=== PATIENT | female | born 1950 | race Caucasian/White ===

== ENCOUNTER 2024-07-01 06:47 | Observation (INO) ==
--- OUTSIDE RECORDS SUMMARY | 2024-07-01 06:51 | External Medical Summary | Summary of Care ---
Author Name Unknown Organization [facility] Address [address] [place] [address] Phone [phone] Care Team Providers Care Jewel Oliving Machine Operator Name Role Phone Garfieldchristiano Zuri Berumen DO Primary Care Provider Encounter Details Date Type Department Care Team (Late st Contact Info) Description 02/20/2024 Orders Only Outcomes Research Department [address] [place], [place] [id number] [place] Hernandez CHRA MyCode Research Other*[id number] Allergies No known active allergiesdocumented as of this encounter (statuses as of 02/20/2024) Medications Medication Sig Dispensed Refills Start Date End Date Status Calcium-Vitamin D 600-125 MG-UNIT TABS Take by mouth. Active Lumigan 0.01 % Ophthalmic Solution 03/24/2020 Activ e Fluticasone Propionate 50 MCG/ACT Nasal Suspension (Flonase)Indication s:URI with cough and congestion Administer 2 Sprays into each nostril as needed for Rhinitis. 12/02/2023 Active Atorvastatin Calcium 10 MG Oral Tablet (Lipitor) Take 1 Tablet by mouth in the morning. 90 Tablet 3 12/02/2023 Active Simethicone 80 MG Oral Tablet Chewable Take 1 Tablet by mouth every 6 hours as needed for Gas. Active Align Prebiotic-Probiotic 5-1.25 MG-GM Oral Tablet Chewable Take by mouth. Activ e documented as of this encounter (statuses as of 02/20/2024) Active Problems Problem Noted Date Diagnosed Date History of cataract 01/01/2022 Hx of nonmelanoma skin cancer 12/23/2020 Overview: BCC R forehead 06/2020, BCC R posterior auricular neck/scalp 11/2017,BCCL NLF 2010, Hx AK Primary open angle glaucoma 04/11/2016 Hx of actinic keratosis 11/12/2015 Hyperlipidemia documented as of this encounter (statuses as of 02/20/2024) Immunizations Name Administration Dates Next Due COVID-19 mRNA, LNP-s, No Pre serve, 2-Dose Series (Pfizer) 01/01/2022,04/03/2021,09/07/2020,2020 HEP A - Hepatitis A (Adult > 18 yrs) 05/10/2013, 11/07/2012 Pneumococcal Conjugate Vacc, 13 Valent (Prevnar) 03/23/2017,03/25/2016 Pneumococcal Conjugate Vacci ne, 20-valent ([id number]) 12/13/2022 Seasonal Influenza, Quadriva lent Hd (Fluzone Hd) 04/21/2022 Seasonal Influenza, Quadriva lent Hd, 65+ Yrs 03/04/2020 Seasonal Influenza, Quadriva lent, No Preserve, IM 03/25/2016 Seasonal Influenza, Split, I IV3, With Preserve, Inj 04/17/2015 Seasonal Influenza, Trivalen t, High Dose, No Preserve, IM 04/03/2021,02/27/2019 TDAP (age 10 and older)(Boostrix) 12/14/2022 TDAP, Age 7 and older, IM (Adacel) 08/04/2012 Typhoid VICPs Parenteral, 2 years and above (Typhim ) 11/07/2012 Zoster Vaccine Recombinant (Shingrix) 08/31/2019 ,04/22/2019 documented as of this encounter Social History Tobacco Use Types Packs/Day Years Used Date Smoking Tobacco: Never Smokeless Tobacco: Never Alcohol Use Standard Drinks/Week Comments Yes 0 (1 standard drink = 0.6 oz pur e alcohol) occ PHQ-2 Answer Date Recorded PHQ Adult Total Score 0 02/26/2022 Hunger Vital Sign Answer Date Recorded Within the past 12 months, y ou worried that your food would run out before you got the money to buy more. Never true 12/01/19 24 Within the past 12 months, t he food you bought just didn't last and you didn't have money to get more. Never true 12/01/2023 Childcare Answer Date Recorded Do you feel overwhelmed with taking care of a child, family member or friend? No 12/01/2023 Does your family need help f inding childcare? (Household - for ages 0-17 years) Not on file 12/01/2023 Clothing Answer Date Recorded Have you been unable to get clothing when it was really needed? No 12/01/2023 Is your family able to get c lothes or diapers when needed? (Household - for ages 0-17 years) Not on file 12/01/2023 Personal Safety Answer Date Recorded Do you feel unsafe or have concerns for your saf ety? No 12/01/2023 Do you have concerns for you r family's safety? (Household - for ages 0-17 years) Not on file 12/01/2023 Utilities Answer Date Recorded Do you have trouble paying y our heating, water, or electric bill? No 12/01/2023 Is your family able to pay t he heat, water, or electric bill? (Household - for ages 0-17 years) Not on file 12/01/2023 Does your family have access to good internet? (Household - for ages 0-17 years) Not on file 12/01/2023 Employment Status Answer Date Recorded Are you unemployed or without regular income? No 12/01/2023 Does the household have a [facility] source [facility] income? (Household - for ages 0-17 years) Not on file 12/01/2023 Social Connections Answer Date Recorded How often do you feel lonely or isolated from th ose around you? Never 12/01/2023 Financial Resource Strain Answer Date R ecorded Do you have any trouble payi ng for your medications, or do you think you might in the future? No 12/01/2023 Does your family have troubl e paying for medicine? (Household - for ages 0-17 years) Not on file 12/01/2023 Transportation Needs Answer Date Record ed READ ONLY Do you have troubl e getting a ride to medical visits or work? Never True 12/01/2023 Does your family have a hard time getting a ride to doctors visits? (Household - for ages 0-17 years) Not on file 12/01/2023 Has lack of transportation k ept you from medical appointments, meetings, work, or from getting things needed for daily living? Check all that apply. (Adult - for ages 18 years and over) Not on file 12/01/2023 Do you (or your family) have trouble finding or paying for a ride (transportation)? (Household - for ages 0-17 years) Not on file 12/01/2023 Housing Stability Answer Date Recorded Do you currently live in a s helter or have no steady place to sleep at night? No 12/01/2023 READ ONLY Do you think you a re at risk of becoming homeless? No 12/01/2023 Does your family worry about paying for your home or becoming homeless? (Household - for ages 0-17 years) Not on file 0 12/01/2023 Are you homeless or worried that you might be in the future? (Adult - for ages 18 years and over) Not on file Are you (or your family) sky eless or worried that you might be in the future? (Household - for ages 0-17 years) Not on file Food Insecurity Answer Date Recorded Do you need food for this week? No 12/01/2023 Are you able to get enough f ood for your family? (Household - for ages 0-17 years) Not on file 12/01/2023 Does your family need food t his week? (Household - for ages 0-17 years) Not on file 12/01/2023 Do you always have enough fo od for your family? (Household - for ages 0-17 years) Not on file 12/01/2023 Sex and Gender Information Value Date Recorded Sex Assigned at Female 06/13/2023 3:45 PM EST Gender Identity Female 06/13/2023 3:45 PM EST Sexual Orientation Straight 06/13/2023 3: 45 PM EST Job Start Date Occupation Industry Not on file Not on file Not on file documented as of this encounter Plan of Treatment Upcoming Encounters Date Type Department Care Team (Late st Contact Info) Description 02/27/2024 2:30 PM EDT Imaging Radiology, [facility] [address] [place] [address] 05/11/2024 2:00 PM EST Office Visit Dermatology [facility] [address] [place] [address] Frederick Lopez MD [address] [place] [address] 12/03/2024 1:00 PM EDT Office Visit Family Practice [facility] [address] [place] [address] Zuri Gillette DO [address] [facility] [place] [address] Scheduled Orders Name Type Priority Associated Diagnoses Orde r Schedule MYCODE SUBSEQUENT ADULT Lab Routine MyCode Research Other*[id number] Every 6 Months for 2 Occurrences starting 02/20/2024 until 03/11/2025 Scheduled Procedures Name Priority Associated Diagnoses Date/Ti me COLONOSCOPY FLEXIBLE PROXIMAL DIAGNOSTIC Recall History of colon polyps Health Maintenance Due Date Last Done Comments Cologuard 1996 Fecal Occult Blood Test 1996 Sigmoidoscopy 1996 Adult Wellness Visit 2017 Depression Screening 02/26/2023 02/26/2022 COVID-19 Vaccine ( season) 2023 01/01/2022, 04/03/2021, 09/07/2020, Additional history exists DXA Scan 05/04/2023 05/04/2016 Influenza Vaccine (FLU shot) (#1) 2024 03/25/2023, 04/21/2022, 04/03/2021, Additional history exists Mammogram 10/26/2024 10/27/2023, 10/03, 10/25/2022, Additional history exists Colonoscopy 03/17/2026 03/17/2021, 03/04, 01/31/2019, Additional history exists Colorectal Cancer Screening 03/17/2026 Lipid Panel 12/07/2028 12/08/2023, 11/2022, 04/09/2022, Additional history exists DTaP,Tdap,and Td Vaccines (3 - Td or Tdap) 12/14/2032 12/14/2022, 08/04/2012 Zoster Vaccines Completed 08/31/2019, 04/22/2019 RETIRED - COLONOSCOPY-EVERY 5 YRS AGES 18-100 Discontinued 03/17/2021, 03/17/2021, 01/31/2019, Additional history exists Pneumococcal Vaccine: 65+ Years Completed 12/13/2022, 03/23/2017, 03/25/2016 HPV (Gardasil) Vaccine Aged Out No lo nger eligible based on patient's age to complete this topic Hepatitis B Vaccine Aged Out No longe r eligible based on patient's age to complete this topic MENINGOCOCCAL (MENACTRA/MENVEO) Aged Out No longer eligible based on patient's age to complete this topic documented as of this encounter Medical Devices Not on filedocumented as of this encounter Visit Diagnoses Diagnosis MyCode Research Other*[id number] documented in this encounter Care Teams Jewel Oliving Machine Operator Relationship Specialty Start Date End Date Zuri Gillette DO [address] [place] [address] PCP - General Family Medicine 09/01/15 documented as of this encounter
--- OUTSIDE RECORDS SUMMARY | 2024-07-01 06:51 | External Medical Summary | Summary of Care ---
Author Name Unknown Organization [facility] Address [address] [facility] [address] Phone [phone] Care Team Providers Care Incident Handler Name Role Phone Zuri Gillette DO Primary Care Provider Reason for Visit * Reason Comments Follow Up Encounter Details Date Type Department Care Team (Late st Contact Info) Description 04/12/2024 2:00 PM EDT Office Visit Family Practice [facility] [address] [facility] [place] [address] Zuri Gillette DO [address] [facility] [place] [address] Age-related osteoporosis without current pathological fracture*; Screening for thyroid disorder Allergies Active Allergy Reactions Criticality Noted Date Comments Morphine Nausea/vomiting Low 04/12/2024 documented as of this encounter (statuses as of 04/26/2024) Medications Medication Sig Dispensed Refills Start Date End Date Status Calcium-Vitamin D 600-125 MG-UNIT TABS Take by mouth. Active Lumigan 0.01 % Ophthalmic Solution 03/24/2020 Active Atorvastatin Calcium 10 MG Oral Tablet (Lipitor) Take 1 Tablet by mouth in the morning. 90 Tablet 3 12/02/2023 Active Simethicone 80 MG Oral Tablet Chewable Take 1 Tablet by mouth every 6 hours as needed for Gas. Active Align Prebiotic-Probioti c 5-1.25 MG-GM Oral Tablet Chewable Take by mouth. Active Fiber 625 MG Oral Tablet Take 625 mg by mouth in the morning. Active Alendronate Sodium 70 MG Oral Tablet (Fosamax)Indicatio ns:Age-related osteoporosis without current pathological fracture Take 1 Tablet by mouth once a week. with 8 oz. water 30 minutes before first meal of the day. Remain upright for 30 min after taking tablet 5 Tablet 11 04/12/2024 Active Fluticasone Propionate 50 MCG/ACT Nasal Suspension (Flonase)Indicatio ns:URI with cough and congestion Administer 2 Sprays into each nostril as needed for Rhinitis. 12/02/2023 4 Discontinue d(Medicatio n List Clean Up) documented as of this encounter (statuses as of 04/26/2024) Active Problems Problem Noted Date Diagnosed Date History of cataract 01/01/2022 Hx of nonmelanoma skin cancer 12/23/2020 Overview: BCC R forehead 06/2020, BCC R posterior auricular neck/scalp 11/2017,BCCL NLF 2010, Hx [place] Primary open angle glaucoma 04/11/2016 Hx of actinic keratosis 11/12/2015 Hyperlipidemia documented as of this encounter (statuses as of 04/26/2024) Immunizations Name Administration Dates Next Due COVID-19 mRNA, LNP-s, No Pre serve, 2-Dose Series (Transbiomed) 01/01/2022,04/03/2021,09/07/2020,2020 COVID-19, MRNA-LNP, 23-24, P F, 30 MCG/0.3 mL, 12 YRS AND ABOVE, IM ([facility]) 03/08/2024 HEP A - Hepatitis A (Adult > 18 yrs) 05/10/2013, 11/07/2012 Pneumococcal Conjugate Vacc, 13 Valent (Prevnar) 03/23/2017,03/25/2016 Pneumococcal Conjugate Vacci ne, 20-valent ([id number]) 12/13/2022 Season Influenza, Quad, PF, Adjuvanted, 65+ Yrs, IM (FLUAD) 03/08/2024 Seasonal Influenza Vac., MDV , IM, 0.5 mL (Fluzone) 04/17/2015 Seasonal Influenza, High Dos e, Trivalent, PF, IM (Fluzone HD) 04/03/2021,02/27/2019 Seasonal Influenza, Quadriva lent Hd (Fluzone Hd) 04/21/2022 Seasonal Influenza, Quadriva lent Hd, 65+ Yrs 03/04/2020 Seasonal Influenza, Quadriva lent, No Preserve, IM 03/25/2016 TDAP (age 10 and older)(Boostrix) 12/14/2022 TDAP, [...] No 12/01/2023 Does the household have a re gular source of income? (Household - for ages [...] file Not on file Not on file Travel History Travel Start Travel End [facility] 03/26/2024 04/06/2024 documented as of this encounter Last Filed Vital Signs Vital Sign Reading Time Taken Comments Blood Pressure 118/60 04/12/2024 1:59 PM EDT Pulse 66 04/12/2024 1:59 PM EDT Temperature 37.2 C (98.9 F) 04/12/2024 1:59 PM ED T Respiratory Rate - - Oxygen Saturation 98% 04/12/2024 1:59 PM EDT Inhaled Oxygen Concentration - - Weight 60.6 kg (133 lb 8 oz) 04/12/2024 1:59 PM EDT Height 167.6 cm (5' 5.98") 04/12/2024 1:59 PM ED T Body Mass Index 21.56 04/12/2024 1:59 PM EDT documented in this encounter Progress Notes * Zuri Gillette, - 04/12/2024 2:06 PM EDT Images from the original note were not included. Subjective: Jazmine Vincent is a 74 year old female. Chief Complaint Patient presents with Follow Up HPI: Patient presents today for follow up on recent dexa scan and recommendations. Dexa was completed on02/27/24 with a high fracture risk. Fosamax or other medication treatment is advised. Patient is notentirely agreeable and reluctant to start fosamax due to possible side affects, but is willing to discuss options. PHM: Patient Active Problem List Diagnosis Hx of actinic keratosis Primary open angle glaucoma Hx of nonmelanoma skin cancer Hyperlipidemia History of cataract Current Outpatient Medications Medication Sig Dispense Refill Alendronate Sodium 70 MG Oral Tablet (Fosamax) Take 1 Tablet by mouth once a week. with 8 oz. water30 minutes before first meal of the day. Remain upright for 30 min after taking tablet 5 Tablet 11 Align Prebiotic-Probiotic 5-1.25 MG-GM Oral Tablet Chewable Take by mouth. Simethicone 80 MG Oral Tablet Chewable Take 1 Tablet by mouth every 6 hours as needed for Gas. Atorvastatin Calcium 10 MG Oral Tablet (Lipitor) Take 1 Tablet by mouth in the morning. 90 Tablet 3 Lumigan 0.01 % Ophthalmic Solution Calcium-Vitamin D 600-125 MG-UNIT TABS Take by mouth. Fiber 625 MG Oral Tablet Take 625 mg by mouth in the morning. No current facility-administered medications for this visit. Review of patient's allergies indicates: Allergen Reactions Morphine Nausea/vomiting Objective: BP 118/60 | Pulse 66 | Temp 37.2 C (98.9 F) | Ht 1.676 m (5' 5.98") | Wt 60.6 kg (133 lb 8 oz) | LMP (LMP Unknown) | SpO2 98% | BMI 21.56 kg/m | BSA 1.68 m Physical Exam: General: alert and no distress Reading Physician Reading Date Result Priority [place] MD [phone] 02/28/2024 Routine Narrative & Impression Radiology, [facility] DXA Performed: 02/27/24 DXA Resulted: 02/28/2024 Jazmine Vincent Reason for testing: estrogen deficient woman at clinical risk Osteoporosis treatment (per questionnaire): A. Previous treatment: NONE B. Current treatment: NONE Major risk factors: personal history of fracture after age 50, wrist fracture Using a [employer] [facility] images of the lumbar spine, left hip were obtained using DXA.. The bone mineral density and T scores [standard, young, normal, female population] are as follows: RESULTS: Lumbar spine: 0.845 gms/cm2 T-score: -1.8 Left total hip: 0.637 gms/cm2 T-score: -2.5 FRAX not indicated. IMPRESSIONS: Fracture risk is based on current National Osteoporosis Foundation (www.nof.org) Clinicians Guide and [place] Association of Clinical Endocrinology (AACE) Guidelines (www.aace.com) and the application of current WHO FRAX tool (https://www.jane.ac.uk/FRAX/) as well as the 2017 [place] [employer]of Rheumatology Glucocorticoid Induced Osteoporosis (GIOP) Guidelines (rheumatology.org/Practice-Kyle lity/Clinical-Support/Zoizjzby-Suklbyiv-Dqlvosfchl) using Bone mineral density derived T-scores andclinical risk factors obtained from the patient questionnaire. 1. The fracture risk is HIGH (based on T-score at or below -2.5) 2. The quality of the examination is GOOD. 3. No previous study for comparison. DEXA machine was recently upgraded so comparison study can notbe made SUGGESTIONS: Information concerning the evaluation and treatment of osteoporosis can be found at the National Osteoporosis Foundation website (www.nof.org) and [place] Association of Clinical Endocrinology (AACE-www.aace.com). Osteoporosis prevention and treatment begins by modifying risk factors (such as smoking cessation and avoiding alcohol excess) and by participating in weight-bearing activities and exercise. Issues related to fall prevention and home safety should be addressed. Current NOF guidelinessuggest 1200 to 1500 mg of calcium from diet and or supplemental sources. It is generally felt bestto get calcium from ones diet. Calcium carbonate and calcium citrate are common calcium supplement choices in most local pharmacies. If the patient is taking a proton pump inhibitor, then calcium citrate should be the preferred supplement, if that is necessary. NOF guidelines for vitamin D are 800 to 1000 units of vitamin D3 daily. However, this may best be guided by measurement of 25-OH vitamin-D level, aiming for a level between 30 to 50 units (ng/ml). Additional information can be found at the FRAX website (https://www.jane.ac.uk/FRAX/), and the [place] College of Rheumatology website (https://www.rheumatology.org/Practice-Quality/Clinical-Support/Clinical-Practic e-Guidelines). 1. Treatment with a bisphosphonate (such as Fosamax/Alendronate, Actonel/Risedronate, or Boniva/Ibandronate) should be considered. If the patient is unable to use an oral bisphosphonate, another agent such as IV bisphosphonates (Boniva/Ibandronate or Reclast/Zoledronic Acid ), Prolia/Denosumab Forteo/Teriparatide, Tymlos/Abaloparatide, Evenity/Romosozumab, or a selective estrogen receptor modulator (Evista/Raloxifene) should be considered. Secondary causes of low bone density should be considered. A 25-OH Vitamin D, serum calcium, and creatinine should be obtained. Other studies can be considered which would include a PTH, IEP, TSH, or Testosterone (in men). (For users of Solicore, there is an osteoporosis Smart Set #1146). 2. A repeat study should be considered in 2 years, after therapy is started [place] M[place] M.D. ISCD Certified Clinical Student Teaching Coordinator Department of Rheumatology [facility] ASSESSMENT/PLAN: Age-related osteoporosis without current pathological fracture (Primary) - PTH; Future; Expected date: 04/12/2024 - Alendronate Sodium 70 MG Oral Tablet (Fosamax); Take 1 Tablet by mouth once a week. with 8 oz. water 30 minutes before first meal of the day. Remain upright for 30 min after taking tablet - SERUM IMMUNOFIXATION; Future; Expected date: 04/12/2024 reviewed appropriate use, benefits, risks, side effects and alternatives. Screening for thyroid disorder - TSH WITH FREE T4 IF INDICATED; Future; Expected date: 04/12/2024 Follow Up: Return if symptoms worsen or fail to improve, for Labs Today. | For: Labs Today 30 min spent with patient, reviewing history, performing physical exam, reviewing labs, studies, specialist OVNs, and reports, educating and coordinating care, discussing treatment And completing note Zuri Gillette DO documented in this encounter Nursing Notes * Noelle Whiting CMA - 04/12/2024 1:57 PM EDT Patient presents today for follow up on recent dexa scan and recommendations. Dexa was completed on02/27/24 with a high fracture risk. Fosamax or other medication treatment is advised. Patient is notentirely agreeable and reluctant to start fosamax due to possible side affects, but is willing to discuss options. documented in this encounter Plan of Treatment Upcoming Encounters Date Type Department Care Team (Late st Contact Info) Description 05/11/2024 2:00 PM EST Office Visit Dermatology [facility] [address] [facility] [place] [address] Frederick Lopez MD [address] [facility] [place] [address] 12/03/2024 1:00 PM EDT Office Visit Family Practice [facility] [address] [facility] [place] [address] Zuri Gillette, [address] [facility] [place] [address] Scheduled Procedures Name Priority Associated Diagnoses Date/Ti me COLONOSCOPY FLEXIBLE PROXIMAL DIAGNOSTIC Recall History of colon polyps Health Maintenance Due Date Last Done Comments Cologuard 1996 Fecal Occult Blood Test 1996 Sigmoidoscopy 1996 Adult Wellness Visit 2017 Depression Screening 02/26/2023 02/26/2022 Mammogram 10/26/2024 10/27/2023, 10/03, 10/25/2022, Additional history exists Colonoscopy 03/17/2026 03/17/2021, 03/04, 01/31/2019, Additional history exists Colorectal Cancer Screening 03/17/2026 Lipid Panel 12/07/2028 12/08/2023, 06/0 11/2022, 04/09/2022, Additional history exists DXA Scan 02/26/2031 02/27/2024, 05/04/2016 DTap/Tdap Vaccines (3 - Td or Tdap) 12/14/2032 12/14/2022, 08/04/2012 Zoster Vaccines Completed 08/31/2019, 04/22/2019 RETIRED - COLONOSCOPY-EVERY 5 YRS AGES 18-100 Discontinued 03/17/2021, 03/17/2021, 01/31/2019, Additional history exists Pneumococcal Vaccine: 65+ Years Completed 12/13/2022, 03/23/2017, 03/23/2017, Additional history exists COVID-19 Vaccine Completed 03/08/2024, 11/2023, 01/01/2022, Additional history exists Influenza Vaccine (FLU shot) Completed 03/08/2024, 03/08/2024, 03/25/2023, Additional history exists HPV (Gardasil) Vaccine Aged Out No lo nger eligible based on patient's age to complete this topic Hepatitis B Vaccine Aged Out No longe r eligible based on patient's age to complete this topic MENINGOCOCCAL (MENACTRA/MENVEO) Aged Out No longer eligible based on patient's age to complete this topic documented as of this encounter Medical Devices Not on filedocumented as of this encounter Results * SERUM IMMUNOFIXATION (04/12/2024 2:38 PM EDT) [facility] Normal/Abnormal Normal Normal 3:15 PM EDT [facility] Immunofixation Interpretation No monoclonal gammopathy detected. 04/13/2024 3:15 PM EDT [facility] Blood Venous blood specimen / Unknown Venipuncture / Unknown 04/12/2024 2:38 PM EDT 04/12/2024 2:38 PM EDT Zuri Gillette DO LAB BLOOD ORDER CATHY [facility] [address] [place] [address] * PTH (04/12/2024 2:38 PM EDT) [facility] PTH 44 15 - 65 pg/mL 04/13/2024 1:28 AM EDT LABORATORY [facility] Blood Venous blood specimen / Unknown Venipuncture / Unknown 04/12/2024 2:38 PM EDT 04/12/2024 2:38 PM EDT Zuri Gillette DO LAB BLOOD ORDER CATHY Performing Organization Address City/[facility] Co de Phone Number [facility] [address] [place] [address] * TSH WITH FREE T4 IF INDICATED (04/12/2024 2:38 PM EDT) TSH 1.14 0.27 - 4.20 uIU/mL 04/13/2024 12:54 AM EDT [facility] Blood Venous blood specimen / Unknown Venipuncture / Unknown 04/12/2024 2:38 PM EDT 04/12/2024 2:38 PM EDT Zuri Gillette DO LAB BLOOD ORDER CATHY Performing Organization Address [facility] de Phone Number [facility] [address] [place] [address] documented in this encounter Visit Diagnoses Diagnosis Age-related osteoporosis without current pathological fracture- Primary Senile osteoporosis Screening for thyroid disorder documented in this encounter Care Teams Incident Handler Relationship Specialty Start Date End Date Zuri Gillette DO [address] [facility] [place] [address] PCP - General Family Medicine 09/01/15 documented as of this encounter
--- OUTSIDE RECORDS SUMMARY | 2024-07-01 06:51 | External Medical Summary | Summary of Care ---
Author Name Unknown Organization [facility] Address [address] [facility] [place] [address] Phone [phone] Care Team Providers Care Bright Cutter Name Role Phone Garfieldchristiano Keating [place] Primary Care Provider Reason for Visit * Reason Onset Date Comments Appointment 01/30/2024 Encounter Details Date Type Department Care Team (Late st Contact Info) Description 01/30/2024 Telephone Otolaryngology [facility] [address] [place] [address] Amber Iqbal PA-C [address] [place] [address] Appointment Allergies No known active allergiesdocumented as of this encounter (statuses as of 01/30/2024) Medications Medication Sig Dispensed Refills Start Date [...] as of this encounter (statuses as of 01/30/2024) Active Problems Problem Noted Date Diagnosed Date History of cataract 01/01/2022 Hx of nonmelanoma skin cancer 12/23/2020 Overview: BCC R forehead 06/2020, BCC R posterior auricular neck/scalp 11/2017,BCCL NLF 2010, Hx [place] Primary open angle glaucoma 04/11/2016 Hx of actinic keratosis 11/12/2015 Hyperlipidemia documented as of this encounter (statuses as of 01/30/2024) Immunizations Name Administration Dates Next Due COVID-19 mRNA, LNP-s, No Pre serve, 2-Dose Series (Zumper) 01/01/2022,04/03/2021,09/07/2020,2020 HEP A - Hepatitis A (Adult > 18 yrs) 05/10/2013, 11/07/2012 Pneumococcal Conjugate Vacc, 13 Valent (Prevnar) 03/23/2017,03/25/2016 Pneumococcal Conjugate Vacci ne, 20-valent ([id number]) 12/13/2022 Seasonal Influenza, Quadriva lent Hd (Fluzone [...] Does the household have a [facility] source of income? (Household - for ages [...] on file documented as of this encounter Miscellaneous Notes * Telephone Encounter - Mame Holder LPN - 01/30/2024 11:49 AM EDT Called patient- she had a referral in December for nasal fracture called to advise if anything needs surgically fixed she would have to be seen at [facility]. She advised she can breath fine and is not interested in surgery. Patient advised she does not need appointment. Was agreeable to cancelling it. documented in this encounter Plan of Treatment Upcoming Encounters Date Type Department Care Team (Late st Contact Info) Description 02/27/2024 2:30 PM EDT Imaging Radiology, [address] [place] [address] 05/11/2024 2:00 PM EST Office Visit Dermatology [facility] [address] [facility] [place] [address] Frederick Lopez MD [address] [facility] [place] [address] 12/03/2024 1:00 PM EDT Office Visit Family Practice [facility] [address] [facility] [place] [address] Zuri Gillette, [address] [facility] [place] [address] Scheduled Procedures Name Priority Associated Diagnoses Date/Ti me COLONOSCOPY FLEXIBLE PROXIMAL DIAGNOSTIC Recall History of colon polyps Health Maintenance Due Date Last Done Comments Cologuard 1996 Fecal Occult Blood Test 1996 Sigmoidoscopy 1996 Depression Screening 02/26/2023 02/26/2022 COVID-19 Vaccine ( [...] Not on filedocumented as of this encounter Care Teams Bright Cutter Relationship Specialty Start Date End Date Zuri Gillette DO [address] [place] [address] PCP - General Family Medicine 09/01/15 documented as of this encounter
--- OUTSIDE RECORDS SUMMARY | 2024-07-01 06:51 | External Medical Summary ---
Author Name Unknown Address Unknown Organization K01:LABORATORY [facility] [address] [facility] [place]. [facility] [address] Laboratory Report Ordering Provider Test Date Status LAURA OLGUIN 04/12/2024 14:38:21 Final Observation Date Value Abnormality Reference (Units ) Status MYCODE SPECIMEN-SST 04/12/2024 14:38:21 Freezing of extracted DNA, whole blood and/or serum. Final Performing Location LABORATORY [facility] [address] [facility] [address]
--- OUTSIDE RECORDS SUMMARY | 2024-07-01 06:51 | External Medical Summary | Summary of Care ---
Author Name Unknown Organization [facility] Address [address] [facility] [address] Phone [phone] Care Team Providers Care Rim Fire Priming Operator Name Role Phone Nain Zuri Berumen DO Primary Care Provider Reason for Visit * Reason Comments Outpatient Testing Encounter Details Date Type Department Care Team (Late st Contact Info) Description 04/12/2024 2:40 PM EDT Laboratory Laboratory [facility] [address] [place] [address] [facility] [address] [facility] [place] [address] [employer] Other*[id number]; Screening for thyroid disorder; Age-related osteoporosis without current pathological fracture Allergies Active Allergy Reactions Criticality Noted Date Comments Morphine Nausea/vomiting Low 04/12/2024 documented as of this encounter (statuses as of 04/12/2024) Medications Medication Sig Dispensed Refills Start Date End Date Status Calcium-Vitamin D 600-125 MG-UNIT TABS Take by mouth. Active Lumigan 0.01 % Ophthalmic Solution 03/24/2020 Activ e Atorvastatin Calcium 10 MG Oral Tablet (Lipitor) Take 1 Tablet by mouth in the morning. 90 Tablet 3 12/02/2023 Active Simethicone 80 MG Oral Tablet Chewable Take 1 Tablet by mouth every 6 hours as needed for Gas. Active Align Prebiotic-Probiotic 5-1.25 MG-GM Oral Tablet Chewable Take by mouth. Activ e Fiber 625 MG Oral Tablet Take 625 mg by mouth in the morning. Active Alendronate Sodium 70 MG Oral Tablet (Fosamax) Take 1 Tablet by mouth once a week. with 8 oz. water 30 minutes before first meal of the day. Remain upright for 30 min after taking tablet 5 Tablet 11 04/12/2024 Active documented as of this encounter (statuses as of 04/12/2024) Active Problems Problem Noted Date Diagnosed Date History of cataract 01/01/2022 Hx of nonmelanoma skin cancer 12/23/2020 Overview: BCC R forehead 06/2020, BCC R posterior auricular neck/scalp 11/2017,BCCL NLF 2010, Hx [place] Primary open angle glaucoma 04/11/2016 Hx of actinic keratosis 11/12/2015 Hyperlipidemia documented as of this encounter (statuses as of 04/12/2024) Immunizations Name Administration Dates Next Due COVID-19 mRNA, LNP-s, No Pre serve, 2-Dose Series (Tempronics) 01/01/2022,04/03/2021,09/07/2020,2020 COVID-19, MRNA-LNP, 23-24, P F, 30 MCG/0.3 mL, 12 YRS AND ABOVE, IM [facility] 03/08/2024 HEP A - Hepatitis A (Adult > 18 yrs) 05/10/2013, 11/07/2012 Pneumococcal Conjugate Vacc, 13 Valent (Prevnar) 03/23/2017,03/25/2016 Pneumococcal Conjugate Vacci ne, 20-valent ([id number]) 12/13/2022 Season Influenza, Quad, PF, Adjuvanted, 65+ [...] file Travel History Travel Start Travel End [facility] 03/26/2024 04/06/2024 documented as of this encounter Plan of Treatment Upcoming Encounters Date Type Department Care Team (Late st Contact Info) Description 05/11/2024 2:00 PM EST Office Visit Dermatology [facility] [address] [facility] [place] [address] Frederick Lopez MD [address] [facility] [place] [address] 12/03/2024 1:00 PM EDT Office Visit Family Practice [facility] [address] [facility] [place] [address] Zuri Gillette, [address] [facility] [place] [address] Pending Results Name Type Priority Associated Diagnoses Date /Time MYCODE SUBSEQUENT ADULT Lab Routine [employer] Other*[id number] 04/12/2024 2:38 PM EDT TSH WITH FREE T4 IF INDICATED Lab Routine Screening for thyroid disorder 04/12/2024 2:38 PM EDT PTH Lab Routine Age-related osteoporosis without current pathological fracture 04/12/2024 2:38 PM EDT SERUM IMMUNOFIXATION Lab Routine Age-related osteoporosis without current pathological fracture 04/12/2024 2:38 PM EDT MYCODE SST1 Lab Routine [employer] Other*[id number] 04/12/2024 2:38 PM EDT MYCODE SST2 Lab Routine [employer] Other*[id number] 04/12/2024 2:38 PM EDT Scheduled Procedures Name Priority Associated Diagnoses Date/Ti [...] Cancer Screening 03/17/2026 Lipid Panel 12/07/2028 12/08/2023, 0611/2022, 04/09/2022, Additional history exists DXA Scan 02/26/2031 [...] this encounter Visit Diagnoses Diagnosis [employer] Other*[id number] Screening for thyroid disorder Age-related osteoporosis without current pathological fracture Senile osteoporosis documented in this encounter Care Teams Rim Fire Priming Operator Relationship Specialty Start Date End Date Zuri Gillette DO [address] [place] [address] PCP - General Family Medicine 09/01/15 documented as of this encounter
--- OUTSIDE RECORDS SUMMARY | 2024-07-01 06:51 | External Medical Summary ---
Author Name Unknown Address Unknown Organization [id number]:[facility] [place] [address] [facility] [address] Laboratory Report Ordering Provider Test Date Status HAZEL VERDUGO 04/12/2024 14:38:21 Final Observation Date Value Abnormality Reference (Units ) Status Parathyrin.intact [Mass/volume] in Serum or Plasma 04/12/2024 14:38:21 44 15-65 (pg/mL) Final Performing Location [facility] [place] [address] [facility] [address]
--- OUTSIDE RECORDS SUMMARY | 2024-07-01 06:51 | External Medical Summary ---
Author Name Unknown Address Unknown Organization K01:[facility] [place] [address] [facility] [address] Laboratory Report Ordering Provider Test Date Status HAZEL VERDUGO 04/12/2024 14:38:21 Final Observation Date Value Abnormality Reference (Units ) Status TSH 04/12/2024 14:38:21 1.14 0.27-4.20 (uIU/mL) Final Performing Location LABORATORY [facility] - [address] [facility] [address]
[2024-07-01] MEDS: OPTIRAY 320 100ml IV ONE (07:33)
--- NOTE | 2024-07-01 07:33 | Emergency Department Note ---
History of Present Illness General Chief complaint: Neuro Symptoms/Deficit Stated complaint: FELL, MEMORY, SPEECH, DIZZY Time Seen by Provider: 07/01/24 07:17 History of Present Illness This 74-year-old female is seen today for evaluation of a fall this morning as well as confusion. Her provides additional history. The patient has had a 4-day history of cold and upper respiratory type symptoms including head congestion, rhinorrhea, mild cough, and malaise. She took some Mucinex yesterday around 9:00. She has had dizziness since then. She got out of bed this morning and fell. She does not remember the fall. Her states he got out of bed and found her on the floor. She was awake at that point. She denied any other complaints other than the dizziness. He brought her in for evaluation. She had a fall in September while in [place], in which she struck her face as well as her arms and knees. He thinks she has had intermittent slurred speech since that time. She has been evaluated with CT scan imaging and her PCP has evaluated her since then. No abnormalities were noted. He has noticed some short-term memory loss and the patient over the last several days. She could not remember what transpired on [place], nor that they had picked their son up from the airport on [address]. They also took him to the bus station yesterday, but she did not remember that either. He is wondering whether the Mucinex is playing any part. The patient denies any chest pain, shortness of breath, nausea, vomiting, fevers, chills, sweats, or headache. She currently denies any motor deficit. She has been ambulatory since her fall this morning. Home Medications Medication Instructions Recorded Confirmed Type bimatoprost 0.01 % eye drops 1 drp OPB PM 09/21/21 07/01/24 History (Lumigan) calcium carbonate (Calcium 600) 600 mg PO TID 09/21/21 07/01/24 History alendronate 70 mg tablet 70 mg PO WK 07/01/24 07/01/24 History atorvastatin 10 mg tablet 10 mg PO QAM 07/01/24 07/01/24 History L.acidop,casei,lactis,rham-B.lact,petty 1 cap PO DAILY #7 caps 07/02/24 Rx 625 mg (10 billion cell) capsule (Advanced Probiotic) amoxicillin 875 mg-potassium 1 tab PO BIDM #14 tabs 07/02/24 Rx clavulanate 125 mg tablet Allergies Allergy/AdvReac Type Severity Reaction Status Date / Time No Known Allergies Allergy Verified 07/01/24 09:48 Past Med/Surg History Problem List (Updated 07/03/24 @ 17:55 by Ernesto Khanna PA-C) Acute confusion (Acute) Syncope TIA (transient ischemic attack) Status post fall Falls Osteoarthritis of knees, bilateral Encounter for pre-operative examination Medical History Osteopenia GERD (gastroesophageal reflux disease) occasional History of skin cancer removed History of migraine HLD (hyperlipidemia) Glaucoma Surgical History History of cataract surgery RT History of partial hysterectomy History of surgery on right wrist History of appendectomy History of colonoscopy Family History Other No family history of adverse response to anesthesia Social History Smoking Status: Never smoker Second Hand Exposure: No; Do You Dip or Chew Tobacco: No; Hx Alcohol Use: No Hx Substance Use: No Preferred Language: Sri Lankan Communication Ability: Effective Launderer Hand Required: No Beliefs That Will Affect Care: None Current Living Situation: Spouse Feels Safe at Home: Yes Assistive Devices: None Review of Systems A total of 10 systems reviewed and were otherwise negative Physical Exam Vital Signs Vital Signs - 24 hr 07/01/24 06:53 07/01/24 07:05 Temperature 36.5 C Temperature Source Skin Pulse Rate 66 68 Respiratory Rate 16 Respiratory Effort / Characteristics Non-Labored Spontaneous Respiratory Depth Normal Respiratory Pattern Regular Blood Pressure 154/83 H Blood Pressure Mean 106 Pulse Oximetry 96 Oxygen Delivery Method Room Air Sepsis Recent Fever Within 48 Hours No Sepsis New/Unexplained Change in Mental Status N/A Sepsis Action Taken by Nursing No Action Required General: Well-developed, well-nourished, elderly female, in no acute distress. Laying on the bed. Alert and oriented. Skin: Warm dry with good turgor. No rashes. No ecchymosis or edema no peripheral edema. Lips are dry. HEENT: Normocephalic atraumatic. Eyes PERRLA, EOMI. No conjunctiva or scleral injection. Ears TMs intact bilaterally with good light reflexes. No erythema or bulging. No hemotympanum. Canals are patent. Nares patent bilaterally without turbinate enlargement. No significant drainage. No epistaxis. Oropharynx without erythema or exudate. Uvula midline, oral mucosa mildly dry. No lesions present. Lymphatics are palpated without anterior or posterior chain enlargement or tenderness. Heart: Heart RRR. No MGR. Peripheral pulses are 2+. Lungs: Lungs are clear to auscultation. No crackles rhonchi or wheezing. Good air movement. The patient is able to take a deep breath. no cough. Abdomen: Abdomen was inspected, auscultated, and palpated. Bowel sounds present x 4. Soft, nontender to palpation. No hepato-splenomegaly. No masses noted. No rebound. Musculoskeletal: Gross motor function of the upper and lower extremities is intact and unremarkable. Symmetric strength for resisted motion of the upper extremities. She has intact finger dexterity. Normal [id number]-vm-[id number] bilaterally. She is able to ambulate. Neurologic: Cranial nerves II through XII are intact. Gross sensation is intact across the upper and lower extremities by soft touch. Normal short and long- term memory recall today. Course Administered Medications Discontinued Medications Amoxicillin/Clavulanate Potassium (Amoxicillin/Clavulanate 875 Mg Tab) 1 tab PO BIDM [facility]; Protocol Stop: 07/11/24 17:14 Last Admin: 07/02/24 07:51 Dose: 1 tab Documented By: Admin: 07/01/24 18:37 Dose: 1 tab Documented By: NIC Cyanocobalamin (Cyanocobalamin (B-12) 500 Mcg Tablet) 500 mcg PO BID [facility] Stop: 08/01/24 12:14 Last Admin: 07/02/24 12:21 Dose: Not Given Documented By: FLORENCE Sodium Chloride (Nss) 1,000 mls @ 75 mls/hr IV .[id number] [facility] Stop: 07/02/24 17:02 Last Admin: 07/02/24 07:51 Dose: 75 mls/hr Documented By: Infusion: 07/02/24 06:59 Dose: Infused Documented By: Admin: 07/01/24 17:39 Dose: 75 mls/hr Documented By: NIC Ioversol (Optiray 320 100ml) 112 ml IV ONCE ONE Stop: 07/01/24 07:33 Last Admin: 07/01/24 07:33 Dose: 112 ml Documented By: ANTONIO Medical Decision Making Differential Diagnosis Dehydration, electrolyte abnormality, hypothyroidism, hypoglycemia, stroke, AR, dementia, urinary infection, pulmonary infection, sepsis Medical Records Attestation: I reviewed the patient's medical records. Home Medications Current Medication List: was personally reviewed by me Laboratory Data CBC, chemistry panel, troponin, TSH, and UA were obtained today. CBC is unremarkable. Chemistry panel was also unremarkable. Glucose is 144. TSH is normal at 0.725. Troponin is also normal at 3.1. UA is unremarkable. Trace leukocytes and moderate amount of RBCs. No bacteria. Nasal swab was negative for influenza, COVID, and RSV. 07/02/24 06:11 07/02/24 07:44 Lab Results 07/01/24 07/01/24 Range/Units 07:25 10:13 WBC 5.98 (4.8-10.8) K/ul RBC 4.58 (4.20-5.40) M/uL Hgb 13.1 (12.0-16.0) g/dl Hct 39.2 (37.0-47.0) % MCV 85.6 (80.0-100.0) fL MCH 28.6 (25.0-34.0) pg MCHC 33.4 (32.0-36.0) g/dL RDW Std Deviation 38.6 (36.4-46.3) fL RDW Coeff of Jeanmarie 12.4 (11.5-14.5) % Plt Count 164 (130-400) K/uL MPV 10.2 (9.4-12.4) fL Immature Gran % (Auto) 0.7 % Neut % (Auto) 78.3 % Lymph % (Auto) 14.9 % Emery % (Auto) 4.5 % Eos % (Auto) 1.3 % Baso % (Auto) 0.3 % Neut # (Auto) 4.68 (1.40-6.50) K/uL Lymph # (Auto) 0.89 L (1.20-3.40) K/uL Emery # (Auto) 0.27 (0.11-0.59) K/uL Eos # (Auto) 0.08 (0.00-0.50) K/uL Baso # (Auto) 0.02 (0.00-0.20) K/uL Immature Gran # (Auto) 0.04 (0.01-0.20) K/uL Sodium 134 L (136-145) mmol/L Potassium 4.1 (3.5-5.1) mmol/L Chloride 101 (98-107) mmol/L Carbon Dioxide 28 (21-32) mmol/L Anion Gap 5 (3-11) BUN 21 (6-23) mg/dl Creatinine 0.75 (0.6-1.2) mg/dl Est Cr Clr Drug Dosing 61.2 ml/min eGFR 84.01 BUN/Creatinine Ratio 28.0 H (10-20) Glucose 144 H (70-99(Fasting)) mg/dl Calcium 8.7 (8.6-10.3) mg/dl Total Bilirubin 0.6 (0.2-1.0) mg/dl AST 16 (13-39) U/L ALT 12 (7-52) U/L Alkaline Phosphatase 54 (34-104) U/L Troponin I High Sens 3.1 (0-14) pg/ml Total Protein 6.8 (6.0-8.3) gm/dl Albumin 3.7 (3.4-5.0) gm/dl Globulin 3.1 (2.5-4.0) gm/dl Albumin/Globulin Ratio 1.2 (0.9-2) Vitamin B12 448 (180-914) pg/ml Folate 13.71 (>5.38) ng/ml TSH 0.725 (0.300-4.500) uIu/ml Urine Color Yellow Urine Appearance Clear (Clear) Urine pH 7.5 (4.5-7.5) Ur Specific [employer] 1.038 H (1.000-1.030) Urine Protein Negative (Negative) Urine Glucose (UA) Negative (Negative) Urine Ketones Negative (Negative) Urine Blood Negative (Negative) Urine Nitrite Negative (Negative) Urine Bilirubin Negative (Negative) Urine Urobilinogen Negative (Negative) Ur Leukocyte Esterase Trace H (Negative) Urine WBC (Auto) 0-5 (0-5) /hpf Urine RBC (Auto) 3-5 H (0-2) /hpf U Hyaline Cast (Auto) 0-2 (0-2) /lpf U Epithel Cells (Auto) 3-5 H (0-2) /hpf Urine Bacteria (Auto) None Seen (None Seen) Imaging Data My Impression: Chest x-ray obtained today was interpreted by me and read by radiology. It is unremarkable. No evidence of pneumonia or other consolidation/Mass. CTA of the head with and without contrast as well as CTA of the neck were obtained. These were also unremarkable. No acute findings. ECG Data Additional Comments: EKG obtained today shows normal sinus rhythm with a rate of 67. No acute ST wave changes are noted. Nonspecific T wave abnormality is noted. This was reviewed with Dr. Myers Blood Pressure Blood Pressure Findings: Normal blood pressure MDM Narrative The patient was evaluated in room B2. IV was established. Labs were obtained. She was placed on a school lunch monitor and remained in a normal sinus rhythm with a rate in the upper 60s. No acute ectopy was noted. CT imaging of her head and neck was obtained along with chest x-ray. All were normal. Her lab work today was also normal. Nasal swab was unremarkable. Given her complaints of dizziness, and concern for short-term memory loss, certainly TIA and acute stroke are of concern. Admission for observation and MRI imaging of her head was recommended. The patient and her are in agreement. The hospital service was consulted. Please see that dictation for final management. The patient remained stable while in the ED. Impression & Plan Acute confusion Admission. Further workup with MRI and echocardiogram. Discharge Plan Visit Data Chief Complaint: Neuro Symptoms/Deficit Stated Complaint: FELL, MEMORY, SPEECH, DIZZY ED Provider: Curtis Myers ED Midlevel Provider: Ernesto Khanna Discharge Problem: Acute confusion Patient Disposition: Admitted As Inpatient Discharge Instructions Interventions: ED Discharge Assessment Last Done: 07/01/24 16:11
[2024-07-01 08:09] LABS: Basophils # (auto) 0.02 K/uL (0.00-0.20); Basophils % (auto) 0.3 %; Eosinophils # (auto) 0.08 K/uL (0.00-0.50); Eosinophils % (auto) 1.3 %; Hematocrit (blood only) 39.2 % (37.0-47.0); Hemoglobin 13.1 g/dl (12.0-16.0); Immature Granulocytes # (auto) 0.04 K/uL (0.01-0.20); Immature Granulocytes % (auto) 0.7 %; Lymphocytes # (auto) 0.89 K/uL (1.20-3.40); Lymphocytes % (auto) 14.9 %; Mean Corpuscular Hemoglobin 28.6 pg (25.0-34.0); Mean Corpuscular Hgb Conc 33.4 g/dL (32.0-36.0); Mean Corpuscular Volume 85.6 fL (80.0-100.0); Mean Platelet Volume 10.2 fL (9.4-12.4); Monocytes # (auto) 0.27 K/uL (0.11-0.59); Monocytes % (auto) 4.5 %; Neutrophils # (auto) 4.68 K/uL (1.40-6.50); Neutrophils % (auto) 78.3 %; Platelet Count 164 K/uL (130-400); RDW Coefficient of Variation 12.4 % (11.5-14.5); RDW Standard Deviation 38.6 fL (36.4-46.3); Red Blood Count 4.58 M/uL (4.20-5.40); White Blood Count 5.98 K/ul (4.8-10.8)
[2024-07-01 08:17] LABS: Albumin Globulin Ratio 1.2 (0.9-2); Albumin Level 3.7 gm/dl (3.4-5.0); Bilirubin,Total 0.6 mg/dl (0.2-1.0); Calcium 8.7 mg/dl (8.6-10.3); Creatinine Clr Calc Pharmacy 61.2 ml/min; Globulin 3.1 gm/dl (2.5-4.0); Potassium 4.1 mmol/L (3.5-5.1); Total Protein 6.8 gm/dl (6.0-8.3)
[2024-07-01 08:24] LABS: Troponin I High Sensitivity 3.1 pg/ml (0-14)
[2024-07-01 08:33] LABS: Thyroid Stimulating Hormone 0.725 uIu/ml (0.300-4.500)
--- NOTE | 2024-07-01 08:46 | XRay Report ---
XR chest 2V PA/lateral CLINICAL HISTORY: dizzy/confusion TECHNIQUE: 2 views of the chest were obtained. Comparison: None available at the time of this dictation. FINDINGS: No lines and tubes are seen. The cardiomediastinal silhouette is normal. The lungs are clear. No evid ence of pleural effusion or pneumothorax. IMPRESSION: No acute chest disease. ACT 112: Negative or not required by law. Electronically signed by: Myles Weaver M.D. 07/01/2024 8:45 AM
--- NOTE | 2024-07-01 09:33 | CT Scan Report ---
CT angio neck with con, CT angio head wo/w CLINICAL HISTORY: dizziness/forgetful TECHNIQUE: Contiguous axial CT images of the head were acquired from the base of the skull to the tyrone javan without intravenous contrast administration. CT angiography of the head and neck was performed f ollowing intravenous administration of iodinated contrast. Coronal and sagittal MIPS were obtained fr om the axial data set and were submitted for review. Automated dose lowering techniques and/or adjus tment according to patient size were utilized for this examination. All measurements were calculated based on NASCET criteria. CT DOSE: 1074.52 mGy.cm Comparison: None available at the time of this dictation. FINDINGS: CT head: There is no acute intracranial hemorrhage or evidence of acute territorial infarction. No sh ift of the midline structures, mass effect, or extra-axial abnormalities are shown. Lungs and soft tissues are unremarkable. CTA Neck: A 3 vessel aortic arch is shown. There is no significant atherosclerotic plaque in the aor tic arch or the origins of the innominate, left common carotid, and left subclavian arteries. The co mmon carotid, external carotid, cervical segments of the internal carotid arteries, and the cervical segments of the vertebral arteries are patent without hemodynamically significant stenosis. The left vertebral artery is dominant. CTA Head: The anterior and posterior cerebral circulations are patent. No hemodynamically significan t stenosis, aneurysm, dissection, or arteriovenous malformation is shown. 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 No acute intracranial hemorrhage, evidence of acute territorial infarction, or other acute intrac ranial disease process. 2. No occlusion, hemodynamically significant stenosis, or dissection in the major cervical arteries. 3. No occlusion, hemodynamically significant stenosis, aneurysm, dissection, or arteriovenous malfor mation in the major intracranial arteries. Assessment of stenosis of the internal carotid arteries is based on NASCET criteria. ACT 112: Negative or not required by law. Electronically signed by: Myles Weaver M.D. 07/01/2024 9:31 AM
--- NOTE | 2024-07-01 10:21 | Electrocardiogram Report ---
Test Reason : Blood Pressure : */* mmHG Vent. Rate : 67 BPM Atrial Rate : 67 BPM P-R Int : 134 ms QRS Dur : 86 ms QT Int : 334 ms P-R-T Axes : 50 3 68 degrees QTcB Int : 352 ms Normal sinus rhythm Septal infarct , age undetermined Nonspecific T wave abnormality Abnormal ECG No previous ECGs available Confirmed by Mame Nelson (Jhonatan) on 07/01/2024 10:21:21 AM Referred By: REFERRED SELF Confirmed By: Mame Nelson
[2024-07-01 10:36] LABS: Appearance Urine Clear (Clear); Bacteria Urine Automated None Seen (None Seen); Bilirubin Urine Negative (Negative); Blood Urine Negative (Negative); Cast Urine Automated 0-2 /lpf (0-2); Color Urine Yellow; Glucose Urine UA Negative (Negative); Ketones Urine Negative (Negative); Leukocyte Esterase Urine Trace (Negative); Nitrite Urine Negative (Negative); Protein Urine Negative (Negative); Specific Gravity Urine 1.038 (1.000-1.030); Urobilinogen Urine Negative (Negative); WBC Urine Automated 0-5 /hpf (0-5); pH Urine 7.5 (4.5-7.5)
[2024-07-01 12:36] LABS: Influenza A virus by PCR Negative (Neg); Influenza B virus by PCR Negative (Neg); RSV by PCR Negative (Neg); SARS CoV2 RNA(COVID-19) Ceph NEGATIVE (Negative)
--- NOTE | 2024-07-01 12:43 | History & Physical Report ---
Date of Service July 01, 2024 Assessment & Plan (1) Status post fall: Plan: 74-year-old very pleasant female with history of dyslipidemia, osteoporosis, other problems below presenting with an episode of fall and subsequent confusion this morning. Status post fall Possible presyncope or syncope In the setting of sinusitis/upper respiratory tract illness Patient has been having 4-day history of sinusitis/upper respiratory illness, has been taking Mucinex DM Fell upon getting out of bed today, unsure if patient had loss of consciousness, patient noted to be confused after event, mostly improved at the ER Start Augmentin twice daily BioFire pending, follow-up Chest x-ray: No pneumonia Rule out acute CVA, seizure CT head, CT angio head and neck: Unrevealing Brain MRI: Pending EEG: Pending Neurochecks Rule out orthostatic hypotension Check orthostatic vital signs, normal saline Rule cardiac etiology Check echocardiogram, telemetry monitoring Cognitive decline Noticed having memory lapses, slurred speech occasionally after sustaining a fall with head trauma, jaw injury over the summer Check folate, B12, TSH Will need to be referred to neurologist as an outpatient Other chronic medical problems Dyslipidemia, glaucoma, nonmelanoma skin cancer DVT prophylaxis SCDs for now Conditional code Okay with CPR, defibrillation; no intubation/mechanical ventilation Disposition Lives at home with her History of Present Illness Chief Complaint: Fall, confusion Primary Care Provider: Zuri Gillette, DO 74-year-old very pleasant female with history of dyslipidemia, osteoporosis, other problems below presenting with an episode of fall and subsequent confusion this morning. History obtained from patient and her at the bedside. Patient reports that she started to have cold symptoms about 4 days ago associated with frontal headache, nasal discharge. Yesterday, the patient felt weak, and somewhat dizzy. She has also been taking Mucinex DM for the past 1 to 2 days. This morning around 6 AM, the patient remembers getting up from bed to go to the bathroom and falling. She does not remember if she passed out or not. She also does not recall events after the fall. Patient's said that he heard her fall, so he got out of bed to check on her and found her on the floor. He found her awake but confused, and answering questions appropriately. He managed to get her up, have her sit in the chair and get dressed to go to the hospital but she was still confused. At the ER, patient received with mildly elevated blood pressure 154/83, rest of vital signs are essentially normal. WBC normal CT head, CT angiogram head and neck: Unrevealing Chest x-ray: No pneumonia BioFire: Pending UA: No UTI On exam, patient seen resting in bed, sitting up, oriented x 3, answering most questions appropriately Patient's reports she is back to "" 75% of her baseline Patient reports some mild frontal headache, but denies nausea vomiting, visual changes, neck pain, chest pain, shortness of breath, abdominal pain, nausea or vomiting. Allergies Allergy/AdvReac Type Severity Reaction Status Date / Time No Known Allergies Allergy Verified 07/01/24 09:48 Home Medications Medication Instructions Recorded Confirmed Type bimatoprost 0.01 % eye drops 1 drp OPB PM 09/21/21 07/01/24 History (Lumigan) calcium carbonate (Calcium 600) 600 mg PO TID 09/21/21 07/01/24 History alendronate 70 mg tablet 70 mg PO WK 07/01/24 07/01/24 History atorvastatin 10 mg tablet 10 mg PO QAM 07/01/24 07/01/24 History Past Med/Surg History Problem List (Updated 07/01/24 @ 12:40 by Jose Carlos Fulton MD) Status post fall Falls Osteoarthritis of knees, bilateral Encounter for pre-operative examination Medical History Osteopenia GERD (gastroesophageal reflux disease) occasional History of skin cancer removed History of migraine HLD (hyperlipidemia) Glaucoma Surgical History History of cataract surgery RT History of partial hysterectomy History of surgery on right wrist History of appendectomy History of colonoscopy Family History Other No family history of adverse response to anesthesia Social History Smoking Status: Never smoker Second Hand Exposure: No; Do You Dip or Chew Tobacco: No; Hx Alcohol Use: Yes Hx Substance Use: No Preferred Language: Bruneian Communication Ability: Effective Spouter Required: No Beliefs That Will Affect Care: None Current Living Situation: Spouse Feels Safe at Home: Yes Assistive Devices: Glasses Review of Systems Review of Systems: all noted and negative except for above Physical Exam Physical Exam: General- oriented x 3, not in distress, speaks in sentences with no effort or accessory muscle use Head- atraumatic Eyes- PERRL, EOMI, anicteric ENT- oropharynx clear Positive frontal sinus tenderness Neck- supple, no JVD, no adenopathy, no thyromegaly; carotids +2/2, no bruits appreciated Lungs- clear to auscultation bilaterally, no rales/wheezes Heart- normal rate, regular rhythm; no murmur, no gallop, no rub appreciated Abdomen- normal bowel sounds, nondistended, soft, nontender, no masses or hepatosplenomegaly Extremities- no pretibial edema, no calf tenderness; peripheral pulses intact Neuro- alert, oriented x 3; CN 2-12 grossly intact; motor 5/5 bilaterally;sensation 100% on all extremities; no other gross focal neurologic deficits Skin- warm & dry Results & Data Results & Data Vital Signs (Past 12 Hours) Vital Signs Temp Pulse Pulse Resp BP BP Pulse Ox 07/01/24 12:00 67 16 147/64 H 95 07/01/24 11:02 66 07/01/24 10:12 68 19 150/75 H 07/01/24 09:57 67 18 112/91 97 07/01/24 08:00 65 18 139/69 07/01/24 07:45 68 16 149/69 H 07/01/24 07:30 67 15 127/90 07/01/24 07:21 64 13 143/67 H 07/01/24 07:18 07/01/24 07:05 68 07/01/24 06:53 36.5 C 66 16 154/83 H 96 O2 Del Method 07/01/24 12:00 Room Air 07/01/24 11:02 07/01/24 10:12 07/01/24 09:57 07/01/24 08:00 07/01/24 07:45 07/01/24 07:30 07/01/24 07:21 07/01/24 07:18 Room Air 07/01/24 07:05 07/01/24 06:53 Room Air all noted and reviewed including below Code Status & VTE Plan VTE Prophylaxis Plan VTE Prophylaxis will be ordered: Yes
--- NOTE | 2024-07-01 14:34 | Emergency Department Note ---
ED Visit Note I was consulted in regards to the patient's presentation and plan of care by the Advanced Practice Provider. I engaged in a detailed/meaningful discussion with the Advanced Practice Provider in regards to this patient's workup and plan of care. I performed a substantiative portion of the medical decision making following discussion with the Advanced Practice Provider. Please see the Advanced Practice Provider's separate documentation for full details of the patient's visit. I agree with the assessment and plan of RAMIREZ Duong, DO Emergency Medicine .
[2024-07-01] MEDS ORDERED: ACETAMINOPHEN 325 MG TAB PO PRN (17:03)
[2024-07-01] MEDS ORDERED: ONDANSETRON INJ 2 MG/ML 2 ML VIAL IV PRN (17:03)
[2024-07-01] MEDS: SODIUM CHLORIDE 0.9% 1,000 ML IV SCH (17:39)
[2024-07-01 17:47] LABS: Folate (Folic Acid),Ser orPlas 13.71 ng/ml (>5.38)
[2024-07-01] MEDS: AMOXICILLIN/CLAVULANATE 875 MG TAB PO SCH (18:37)
--- NOTE | 2024-07-01 19:56 | Magnetic Resonance Report ---
EXAM: MR brain wo con CLINICAL HISTORY: PT STATES FALL THIS AM. CONFUSION. MEMORY LOSS. R/O CVA. NO HEAD TRAUMA. NO HX OF STROKE. NO PRIOR SURGERY. HX OF SKIN CANCER. TECHNIQUE: MRI of the brain was performed without contrast with multiplanar sequences obtained. Images were sent through PACS for diagnostic interpretation. COMPARISON: No previous studies are available for comparison. FINDINGS: Brain Parenchyma: OBX.5.1OBX.5.1.1 Tiny foci of abnormal high T2 /OBX.5.1.1OBX.5.1.2 FLAIR signal are seen at the left frontoparietal region, with no perifocal edema or mass effect./OBX.5.1.2/OBX.5.1 No evidence of acute infarction or hemorrhage. Normal sinha-white matter differentiation. No mass lesions or focal cortical abnormalities were identified. Ventricles and Sulci: Normal size and configuration of the lateral ventricles, third ventricle, and fourth ventricle. No evidence of hydrocephalus or ventriculomegaly. Accentuated cortical sulci and extra-axial CSF spaces. Posterior Fossa: The cerebellum and brainstem appear normal without evidence of mass lesions or signal abnormalities. Cranial Nerves: Normal course and appearance of cranial nerves identified. Vessels: No evidence of vascular malformations or aneurysms. Intracranial arteries and veins appear normal without evidence of stenosis or occlusion. Orbits and Skull Base: Orbits and skull base structures are normal without evidence of abnormalities. IMPRESSION: 1. No evidence of acute infarction or hemorrhage. 2. Left frontoparietal tiny foci of abnormal signal likely chronic microvascular ischemic changes. 3. Age-related involutional brain changes. Electronically signed by Lauryn Rojas 07-01-2024 7:56 PM
[2024-07-02 05:45] VITALS: O2SAT 95
[2024-07-02 07:18] LABS: Basophils # (auto) 0.02 K/uL (0.00-0.20); Basophils % (auto) 0.4 %; Eosinophils # (auto) 0.06 K/uL (0.00-0.50); Eosinophils % (auto) 1.1 %; Hematocrit (blood only) 38.5 % (37.0-47.0); Hemoglobin 12.9 g/dl (12.0-16.0); Immature Granulocytes # (auto) 0.02 K/uL (0.01-0.20); Immature Granulocytes % (auto) 0.4 %; Lymphocytes # (auto) 1.02 K/uL (1.20-3.40); Lymphocytes % (auto) 18.8 %; Mean Corpuscular Hemoglobin 28.4 pg (25.0-34.0); Mean Corpuscular Hgb Conc 33.5 g/dL (32.0-36.0); Mean Corpuscular Volume 84.8 fL (80.0-100.0); Mean Platelet Volume 10.8 fL (9.4-12.4); Monocytes # (auto) 0.35 K/uL (0.11-0.59); Monocytes % (auto) 6.5 %; Neutrophils # (auto) 3.95 K/uL (1.40-6.50); Neutrophils % (auto) 72.8 %; Platelet Count 188 K/uL (130-400); RDW Coefficient of Variation 12.6 % (11.5-14.5); RDW Standard Deviation 38.8 fL (36.4-46.3); Red Blood Count 4.54 M/uL (4.20-5.40); White Blood Count 5.42 K/ul (4.8-10.8)
[2024-07-02 07:34] LABS: Anion Gap 5 (3-11); BUN Creatinine Ratio 28.6 (10-20); Blood Urea Nitrogen 22 mg/dl (6-23); Calcium 8.6 mg/dl (8.6-10.3); Carbon Dioxide 28 mmol/L (21-32); Chloride 103 mmol/L (98-107); Creatinine Clr Calc Pharmacy 60.9 ml/min; Glucose 83 mg/dl (70-99(Fasting)); Sodium 136 mmol/L (136-145)
[2024-07-02] MEDS: CYANOCOBALAMIN (B-12) 500 MCG TABLET PO SCH (12:21)
--- NOTE | 2024-07-02 12:53 | Neurology Consultation ---
Date of Consultation July 02, 2024 Assessment & Plan (1) Syncope: Suspect the patient had suffered from a syncopal event. No evidence of abnormalities on Exam. CTA with no evidence of vascular stenosis or vertebrobasilar insufficiency's. Plan Continue to check orthostatics Consider a Zio patch upon discharge given that echocardiogram shows a preserved ejection fraction of 55 to 60%, with no evidence of valvular stenosis, no atrial enlargement. Encourage hydration Telehealth Consultation Telehealth Information Telehealth Information: I performed this visit using a real-time telehealth connection between my location and the patients location ([facility]). After connecting through interactive tele-video, patient was identified by name and date of and/or wristband check.Patient (or authorized healthcare food service sales representatives) was informed that this was a telemedicine visit and it was being conducted confidentially over secure lines. My office door was closed and no one else was present in the room with me.Patient (or authorized healthcare food service sales representatives) provided consent to proceed with the visit, expressed an understanding of privacy and security of the telemedicine visit, and gave permission to have a hospital food service sales representatives in the room in order to assist with the visit and to conduct portions of the visit, as needed. I informed the patient (or authorized healthcare food service sales representatives) that I reviewed their record and presented the opportunity for them to ask any questions regarding the visit today. The patient agreed to participate. History of Present Illness Reason for Consultation: Syncope Requesting Physician: Ishaan Aguero MD Attending Physician: Ishaan Aguero MD History of Present Illness Jazmine Kenyon is a 74-year-old female patient with PMH of osteoarthritis, who was having upper respiratory symptoms recently, she reports that yesterday morning when she woke up at 6 AM she took few steps and then fell down, she does not remember falling down however she remembers waking up immediately with no confusion afterwards. She denies any dimming of her vision any numbness or weakness, denies any chest pain preceding the event. She denies any prior history of similar events, denies any history of alcohol intake or drug intake, she reports taking Benadryl prior to bedtime also taking Mucinex as well.. She denies any current neurological deficits she is up and walking this condition did not happen again, she does not feel dizzy , denies any difficulties with gait. Allergies Allergy/AdvReac Type Severity Reaction Status Date / Time No Known Allergies Allergy Verified 07/01/24 09:48 Home Medications Medication Instructions Recorded Confirmed Type bimatoprost 0.01 % eye drops 1 drp OPB PM 09/21/21 07/01/24 History (Lumigan) calcium carbonate (Calcium 600) 600 mg PO TID 09/21/21 07/01/24 History alendronate 70 mg tablet 70 mg PO WK 07/01/24 07/01/24 History atorvastatin 10 mg tablet 10 mg PO QAM 07/01/24 07/01/24 History L.acidop,casei,lactis,rham-B.lact,petty 1 cap PO DAILY #7 caps 07/02/24 Rx 625 mg (10 billion cell) capsule (Advanced Probiotic) amoxicillin 875 mg-potassium 1 tab PO BIDM #14 tabs 07/02/24 Rx clavulanate 125 mg tablet Patient History Medical History Osteopenia GERD (gastroesophageal reflux disease) occasional History of skin cancer removed History of migraine HLD (hyperlipidemia) Glaucoma Surgical History History of cataract surgery RT History of partial hysterectomy History of surgery on right wrist History of appendectomy History of colonoscopy Family History Other No family history of adverse response to anesthesia Social History Smoking Status: Never smoker Second Hand Exposure: No; Do You Dip or Chew Tobacco: No; Hx Alcohol Use: No Hx Substance Use: No Preferred Language: Iraqi Communication Ability: Effective Wire Annealer Required: No Beliefs That Will Affect Care: None Current Living Situation: Spouse Other Information That Helps Us Care for You: No Feels Safe at Home: Yes Safety Concerns: Feels Safe At This Time Assistive Devices: Hearing Aid - Bilateral Review of Systems Constitutional: Patient denies weight loss, fever, chills, and night sweats Eyes: Patient denies change in vision, tearing, pain, and redness ENT: Patient denies pain, bleeding, rhinorrhea, and dysphagia Cardiovascular: Patient denies chest pain, palpitation, dyspnea at rest, and dyspnea with exertion Respiratory: Patient denies shortness of breath, cough, wheezing, and productive cough GI: Patient denies reflux, pain, constipation, and diarrhea Skin: Patient denies rash, dryness, and itching Allergies/Immune System: Patient denies rhinorrhea, seasonal allergies, reaction to current MEDS, and joint swelling Endocrine: Patient denies weight loss, weight gain, temperature intolerance, and excessive thirst Neurological: All negative unless mentioned in the HPI Physical Exam General Constitutional: Appearance normally developed Head and face: normocephalic and atraumatic Eyes: no ptosis, no anisocoria, and no dysconjugate gaze Respiratory: normal effort Cardiovascular: regular rhythm and regular rate Abdomen: non distended Skin: no rashes, lesions, or ulcers noted Psychiatric: normal judgement and insight, normal mood, and normal affect NEUROLOGIC EXAMINATION: Mental Status:alert, oriented to time, place, person, normal recent memory, normal remote memory, normal attention span, normal concentration, normal language and normal fund of knowledge Cranial Nerves: CN 2 - no visual defect on confrontation and pupils round, equal, reactive to light CN 3, 4, 6 - extra-ocular movements intact and no nystagmus CN 5 - facial sensation intact CN 7 - no facial asymmetry CN 8 - intact hearing CN 9, 10 - palate symmetric, normal gag CN 11 - good shoulder shrug CN 12 - tongue midline MOTOR: Strength was at least antigravity throughout, Pronator drift was absent and There were no abnormal movements SENSATION: intact and symmetric to pinprick, light touch, vibration and joint position GAIT: stable, no ataxia and can perform tandem walking COORDINATION: no ataxia with finger to nose testing and heel to brennan testing REFLEXES: cannot assess over telemedicine NIH Stroke Scale: 1a. Level of Consciousness: alert = 0 1b. LOC Questions: (month, age): both correct = 0 1c. LOC Commands (open and close eyes, make fist and let go using non-paretic hand): obeys both correctly = 0 2. Best Gaze (eyes open and patient follows examiner's finger or face): normal = 0 3. Visual (visual threat or finger counting in each quadrant): no loss = 0 4. Facial Palsy (show teeth, raise eye brows and squeeze eyes shut, or grimace symmetry in a comatose patient): normal = 0 5a. Motor Arm (extend arm (palms down) to 90 degrees and score drift/movement (10 seconds) - Left: no drift = 0 5b. Motor Arm: (extend arm (palms down) to 90 degrees and score drift/movement (10 seconds) - Right: no drift = 0 6a. Motor Leg (elevate leg 30 degrees and score drift/ movement (5 seconds) - Left: no drift = 0 6b. Motor Leg (elevate leg 30 degrees and score drift/ movement (5 seconds) - Right: no drift = 0 7. Limb Ataxia (finger to nose, heel down brennan): absent = 0 8. Sensory (pin prick to face, arm, trunk and leg, compare side to side): normal = 0 9. Best Language: no aphasia = 0 10. Dysarthria (evaluate speech clarity by patient repeating listed words): normal articulation = 0 11. Extinction and Inattention: no neglect = 0 Total: 0 Results & Data Vital Signs (Past 12 Hours) Vital Signs Temp Pulse Pulse Resp BP BP Pulse Ox 07/02/24 12:05 36.5 C 59 L 16 180/75 H 95 07/02/24 08:30 07/02/24 07:35 36.6 C 58 L 16 142/77 H 95 07/02/24 07:00 60 07/02/24 04:30 36.6 C 59 L 18 135/71 95 07/02/24 02:03 O2 Del Method 07/02/24 12:05 Room Air 07/02/24 08:30 Room Air 07/02/24 07:35 Room Air 07/02/24 07:00 07/02/24 04:30 Room Air 07/02/24 02:03 Room Air Laboratory Results Laboratory Results - last 24 hr 07/01/24 07/02/24 07/02/24 07:25 06:11 07:44 WBC 5.42 RBC 4.54 Hgb 12.9 Hct 38.5 MCV 84.8 MCH 28.4 MCHC 33.5 RDW Std Deviation 38.8 RDW Coeff of Jeanmarie 12.6 Plt Count 188 MPV 10.8 Immature Gran % (Auto) 0.4 Neut % (Auto) 72.8 Lymph % (Auto) 18.8 [place] % (Auto) 6.5 Eos % (Auto) 1.1 Baso % (Auto) 0.4 Neut # (Auto) 3.95 Lymph # (Auto) 1.02 L [place] # (Auto) 0.35 Eos # (Auto) 0.06 Baso # (Auto) 0.02 Immature Gran # (Auto) 0.02 Sodium 136 Potassium TNP 4.0 Chloride 103 Carbon Dioxide 28 Anion Gap 5 BUN 22 Creatinine 0.77 Est Cr Clr Drug Dosing 60.9 eGFR 81.40 BUN/Creatinine Ratio 28.6 H Glucose 83 Calcium 8.6 Vitamin B12 448 Folate 13.71 Diagnostic Findings Brain MRI 07/01/24 11:51 EXAM: MR brain wo con / no acute infarct , minimal white matter changes , CLINICAL HISTORY: PT STATES FALL THIS AM. CONFUSION. MEMORY LOSS. R/O CVA. NO HEAD TRAUMA. NO HX OF STROKE. NO PRIOR SURGERY. HX OF SKIN CANCER. TECHNIQUE: MRI of the brain was performed without contrast with multiplanar sequences obtained. Images were sent through PACS for diagnostic interpretation. COMPARISON: No previous studies are available for comparison. FINDINGS: Brain Parenchyma: [id number].[id number].5.1.1 Tiny foci of abnormal high T2 /OBX.5.1.1OBX.5.1.2 FLAIR signal are seen at the left frontoparietal region, with no perifocal edema or mass effect./OBX.5.1.2/OBX.5.1 No evidence of acute infarction or hemorrhage. Normal sinha-white matter differentiation. No mass lesions or focal cortical abnormalities were identified. Ventricles and Sulci: Normal size and configuration of the lateral ventricles, third ventricle, and fourth ventricle. No evidence of hydrocephalus or ventriculomegaly. Accentuated cortical sulci and extra-axial CSF spaces. Posterior Fossa: The cerebellum and brainstem appear normal without evidence of mass lesions or signal abnormalities. Cranial Nerves: Normal course and appearance of cranial nerves identified. Vessels: No evidence of vascular malformations or aneurysms. Intracranial arteries and veins appear normal without evidence of stenosis or occlusion. Orbits and Skull Base: Orbits and skull base structures are normal without evidence of abnormalities. IMPRESSION: 1. No evidence of acute infarction or hemorrhage. 2. Left frontoparietal tiny foci of abnormal signal likely chronic microvascular ischemic changes. 3. Age-related involutional brain changes. Electronically signed by Lauryn Rojas 07-01-2024 7:56 PM CTA head and neck: IMPRESSION: 1. No acute intracranial hemorrhage, evidence of acute territorial infarction, or other acute intracranial disease process. 2. No occlusion, hemodynamically significant stenosis, or dissection in the major cervical arteries. 3. No occlusion, hemodynamically significant stenosis, aneurysm, dissection, or arteriovenous malformation in the major intracranial arteries. Medications Administered Home Medications Medication Instructions Recorded Confirmed Last Taken bimatoprost 0.01 % eye drops 1 drp OPB PM 09/21/21 07/01/24 06/30/24 (Joleen) calcium carbonate (Calcium 600) 600 mg PO TID 09/21/21 07/01/24 06/30/24 alendronate 70 mg tablet 70 mg PO WK 07/01/24 07/01/24 06/24/24 atorvastatin 10 mg tablet 10 mg PO QAM 07/01/24 07/01/24 06/30/24 Active Medications Generic Name Dose Route Start Last Admin Trade Name Freq PRN Reason Stop Dose Admin Amoxicillin/Clavulanate Potassium 1 tab 07/01/24 17:15 07/02/24 07:51 Amoxicillin/Clavulanate 875 Mg Tab PO 07/11/24 17:14 1 tab BIDM SAJAN Administration Protocol Sodium Chloride 1,000 mls @ 75 mls/hr 07/01/24 17:03 07/02/24 07:51 Nss IV 07/02/24 17:02 75 mls/hr .[id number] SAJAN Administration ECG Additional Comments: EKG: NSR echo : EF 50%, no atrial enlargement (1) Syncope Syncope type: unspecified Qualified Code(s): R55 - Syncope and collapse
--- NOTE | 2024-07-02 14:53 | Communication Note ---
Date of Service: July 02, 2024 By CMS guidelines, a determination that the admission or continued stay is not medically necessary has been made by a member of the UR committee and a physician for this hospital stay, therefore a Code 44 will be completed and the Inpatient admission will be changed to outpatient. Jose Carlos Fulton MD
[2024-07-02 14:56] VITALS: PULSE 62; RESP 15; TEMP 98.1
--- NOTE | 2024-07-02 15:00 | Discharge Summary ---
Discharge Summary Date of Service July 02, 2024 Principal Dx & Hospital Course #1 = Principal Diagnosis (1) Status post fall: 74-year-old very pleasant female with history of dyslipidemia, osteoporosis, other problems below presenting with an episode of fall and subsequent confusion prior to arrival on day of admission. Status post fall Possible presyncope or syncope In the setting of sinusitis/upper respiratory tract illness Patient has been having 4-day history of sinusitis/upper respiratory illness, has been taking Mucinex DM Fell upon getting out of bed today, unsure if patient had loss of consciousness, patient noted to be confused after event as this was witnessed by , mostly improved at the ER Start Augmentin twice daily for sinusitis BioFire negative Chest x-ray: No pneumonia Rule out acute CVA, seizure CT head, CT angio head and neck: Unrevealing Brain MRI: No evidence of acute infarction or hemorrhage. 2. Left frontoparietal tiny foci of abnormal signal likely chronic microvascular ischemic changes. 3. Age-related involutional brain changes. EEG: Pending, will need follow up as outpatient Neurochecks Neurology consulted: felt likely syncope - recommending a ZIO patch as outpatient Rule out orthostatic hypotension orthostatic vital signs negative, received IVF and is feeling improved Rule cardiac etiology Echocardiogram: EF 55-60%, no pericardial effusion Telemetry was with out acute arrhythmia Cognitive decline Noticed having memory lapses, slurred speech occasionally after sustaining a fall with head trauma, jaw injury over the summer Folate, B12, TSH unremarkable Recommend follow up with Neurologist at outpatient given evidence of chronic microvascular changes on imaging Other chronic medical problems Dyslipidemia, glaucoma, nonmelanoma skin cancer Disposition: Discharge to home with with close outpatient follow up Notes For Next Care Provider Please coordinate the patient to have a ZIO patch. I recommend patient follow up with neurology as outpatient for possible neuropsych/cognitive testing. Pt had EEG done while inpatient. Please follow up with results as they were pending at the time of discharge. Medication Changes From Visit Augmentin 875mg by mouth twice daily for 7 days for Sinus infection. It is recommended you also take a probiotic to protect your GI health while taking antibiotic. This will be sent to your pharmacy. Admission HPI Per Admitting Provider 74-year-old very pleasant female with history of dyslipidemia, osteoporosis, other problems below presenting with an episode of fall and subsequent confusion this morning. History obtained from patient and her at the bedside. Patient reports that she started to have cold symptoms about 4 days ago associated with frontal headache, nasal discharge. Yesterday, the patient felt weak, and somewhat dizzy. She has also been taking Mucinex DM for the past 1 to 2 days. This morning around 6 AM, the patient remembers getting up from bed to go to the bathroom and falling. She does not remember if she passed out or not. She also does not recall events after the fall. Patient's said that he heard her fall, so he got out of bed to check on her and found her on the floor. He found her awake but confused, and answering questions appropriately. He managed to get her up, have her sit in the chair and get dressed to go to the hospital but she was still confused. At the ER, patient received with mildly elevated blood pressure 154/83, rest of vital signs are essentially normal. WBC normal CT head, CT angiogram head and neck: Unrevealing Chest x-ray: No pneumonia BioFire: Pending UA: No UTI On exam, patient seen resting in bed, sitting up, oriented x 3, answering most questions appropriately Patient's reports she is back to "" 75% of her baseline Patient reports some mild frontal headache, but denies nausea vomiting, visual changes, neck pain, chest pain, shortness of breath, abdominal pain, nausea or vomiting. Admission Exam Per Admitting Provider General- oriented x 3, not in distress, speaks in sentences with no effort or accessory muscle use Head- atraumatic Eyes- PERRL, EOMI, anicteric ENT- oropharynx clear Positive frontal sinus tenderness Neck- supple, no JVD, no adenopathy, no thyromegaly; carotids +2/2, no bruits appreciated Lungs- clear to auscultation bilaterally, no rales/wheezes Heart- normal rate, regular rhythm; no murmur, no gallop, no rub appreciated Abdomen- normal bowel sounds, nondistended, soft, nontender, no masses or hepatosplenomegaly Extremities- no pretibial edema, no calf tenderness; peripheral pulses intact Neuro- alert, oriented x 3; CN 2-12 grossly intact; motor 5/5 bilaterally;sensation 100% on all extremities; no other gross focal neurologic deficits Skin- warm & dry Discharge Exam Constitutional: WD/WN, vitals as above, NAD, sitting up in bed, pleasant, conversing easily Head: Normocephalic, Atraumatic Eyes: PERRL, conjunctivae normal, anicteric sclerae ENMT: external ear and nose normal, oropharynx normal Neck: trachea midline, no thyromegaly normal visual inspection Respiratory: normal respiratory effort, lungs clear to auscultation, no wheeze, rales, rhonchi. Normal insp/exp effort, no accessory muscle use Cardiovascular: RRR, no murmur, no edema Vessels: no JVD or carotid bruit Chest: normal inspection of chest Abdomen: normal bowel sounds, soft, nontender, no hepatosplenomegaly Musculoskeletal: no cyanosis or clubbing, extremities motor strength 5/5 Skin: no rashes, warm and dry normal turgor Neurologic: PERRL, EOMI, accommodation nl, no face palsy, no dysarthria CN's II-XI intact bilaterally and moves all extremities Psychiatric: A+Ox3, euthymic affect Lymphatic: no cervical or axillary lymphadenopathy : deferred Updated Medication List Medication Instructions Recorded Confirmed Type bimatoprost 0.01 % eye drops 1 drp OPB PM 09/21/21 07/01/24 History (Lumigan) calcium carbonate (Calcium 600) 600 mg PO TID 09/21/21 07/01/24 History alendronate 70 mg tablet 70 mg PO WK 07/01/24 07/01/24 History atorvastatin 10 mg tablet 10 mg PO QAM 07/01/24 07/01/24 History L.acidop,casei,lactis,rham-B.lact,petty 1 cap PO DAILY #7 caps 07/02/24 Rx 625 mg (10 billion cell) capsule (Advanced Probiotic) amoxicillin 875 mg-potassium 1 tab PO BIDM #14 tabs 07/02/24 Rx clavulanate 125 mg tablet Hospital Stay Data Consultations 07/01/24 11:39 ED Decision to Admit Stat 07/02/24 09:38 Consult Neurology Routine Diagnostic Imagining Performed Chest X-Ray 07/01/24 07:18 XR chest 2V PA/lateral CLINICAL HISTORY: dizzy/confusion TECHNIQUE: 2 views of the chest were obtained. Comparison: None available at the time of this dictation. FINDINGS: No lines and tubes are seen. The cardiomediastinal silhouette is normal. The lungs are clear. No evidence of pleural effusion or pneumothorax. IMPRESSION: No acute chest disease. ACT 112: Negative or not required by law. Electronically signed by: Myles Weaver M.D. 07/01/2024 8:45 AM Head CTA 07/01/24 07:23 CT angio neck with con, CT angio head wo/w CLINICAL HISTORY: dizziness/forgetful TECHNIQUE: Contiguous axial CT images of the head were acquired from the base of the skull to the vertex without intravenous contrast administration. CT angiography of the head and neck was performed following intravenous administration of iodinated contrast. Coronal and sagittal MIPS were obtained from the axial data set and were submitted for review. Automated dose lowering techniques and/or adjustment according to patient size were utilized for this examination. All measurements were calculated based on NASCET criteria. CT DOSE: 1074.52 mGy.cm Comparison: None available at the time of this dictation. FINDINGS: CT head: There is no acute intracranial hemorrhage or evidence of acute territorial infarction. No shift of the midline structures, mass effect, or extra-axial abnormalities are shown. Lungs and soft tissues are unremarkable. CTA Neck: A 3 vessel aortic arch is shown. There is no significant atherosclerotic plaque in the aortic arch or the origins of the innominate, left common carotid, and left subclavian arteries. The common carotid, external carotid, cervical segments of the internal carotid arteries, and the cervical segments of the vertebral arteries are patent without hemodynamically significant stenosis. The left vertebral artery is dominant. CTA Head: The anterior and posterior cerebral circulations are patent. No hemodynamically significant stenosis, aneurysm, dissection, or arteriovenous malformation is shown. 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 No acute intracranial hemorrhage, evidence of acute territorial infarction, or other acute intracranial disease process. 2. No occlusion, hemodynamically significant stenosis, or dissection in the major cervical arteries. 3. No occlusion, hemodynamically significant stenosis, aneurysm, dissection, or arteriovenous malformation in the major intracranial arteries. Assessment of stenosis of the internal carotid arteries is based on NASCET criteria. ACT 112: Negative or not required by law. Electronically signed by: Myles Weaver M.D. 07/01/2024 9:31 AM Neck CTA 07/01/24 07:23 CT angio neck with con, CT angio head wo/w CLINICAL HISTORY: dizziness/forgetful TECHNIQUE: Contiguous axial CT images of the head were acquired from the base of the skull to the vertex without intravenous contrast administration. CT angiography of the head and neck was performed following intravenous administration of iodinated contrast. Coronal and sagittal MIPS were obtained from the axial data set and were submitted for review. Automated dose lowering techniques and/or adjustment according to patient size were utilized for this examination. All measurements were calculated based on NASCET criteria. CT DOSE: 1074.52 mGy.cm Comparison: None available at the time of this dictation. FINDINGS: CT head: There is no acute intracranial hemorrhage or evidence of acute territorial infarction. No shift of the midline structures, mass effect, or extra-axial abnormalities are shown. Lungs and soft tissues are unremarkable. CTA Neck: A 3 vessel aortic arch is shown. There is no significant atherosclerotic plaque in the aortic arch or the origins of the innominate, left common carotid, and left subclavian arteries. The common carotid, external carotid, cervical segments of the internal carotid arteries, and the cervical segments of the vertebral arteries are patent without hemodynamically significant stenosis. The left vertebral artery is dominant. CTA Head: The anterior and posterior cerebral circulations are patent. No hemodynamically significant stenosis, aneurysm, dissection, or arteriovenous malformation is shown. 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 No acute intracranial hemorrhage, evidence of acute territorial infarction, or other acute intracranial disease process. 2. No occlusion, hemodynamically significant stenosis, or dissection in the major cervical arteries. 3. No occlusion, hemodynamically significant stenosis, aneurysm, dissection, or arteriovenous malformation in the major intracranial arteries. Assessment of stenosis of the internal carotid arteries is based on NASCET criteria. ACT 112: Negative or not required by law. Electronically signed by: Myles Weaver M.D. 07/01/2024 9:31 AM Brain MRI 07/01/24 11:51 EXAM: MR brain wo con CLINICAL HISTORY: PT STATES FALL THIS AM. CONFUSION. MEMORY LOSS. R/O CVA. NO HEAD TRAUMA. NO HX OF STROKE. NO PRIOR SURGERY. HX OF SKIN CANCER. TECHNIQUE: MRI of the brain was performed without contrast with multiplanar sequences obtained. Images were sent through PACS for diagnostic interpretation. COMPARISON: No previous studies are available for comparison. FINDINGS: Brain Parenchyma: OBX.5.1OBX.5.1.1 Tiny foci of abnormal high T2 /OBX.5.1.1OBX.5.1.2 FLAIR signal are seen at the left frontoparietal region, with no perifocal edema or mass effect./OBX.5.1.2/OBX.5.1 No evidence of acute infarction or hemorrhage. Normal sinha-white matter differentiation. No mass lesions or focal cortical abnormalities were identified. Ventricles and Sulci: Normal size and configuration of the lateral ventricles, third ventricle, and fourth ventricle. No evidence of hydrocephalus or ventriculomegaly. Accentuated cortical sulci and extra-axial CSF spaces. Posterior Fossa: The cerebellum and brainstem appear normal without evidence of mass lesions or signal abnormalities. Cranial Nerves: Normal course and appearance of cranial nerves identified. Vessels: No evidence of vascular malformations or aneurysms. Intracranial arteries and veins appear normal without evidence of stenosis or occlusion. Orbits and Skull Base: Orbits and skull base structures are normal without evidence of abnormalities. IMPRESSION: 1. No evidence of acute infarction or hemorrhage. 2. Left frontoparietal tiny foci of abnormal signal likely chronic microvascular ischemic changes. 3. Age-related involutional brain changes. Electronically signed by Lauryn Rojas 07-01-2024 7:56 PM Pending Results Patient Have Any Pending Studies at Discharge: Yes (EEG) Discharge Instructions Given to Patient (Per Discharging Provider) MEDICATION CHANGES: Augmentin 875mg by mouth twice daily for 7 days for Sinus infection. It is recommended you also take a probiotic to protect your GI health while taking antibiotic. This will be sent to your pharmacy. Continue all other medications as prescribed. SUMMARY OF TEST RESULTS: You were admitted to hospital after having a fall and a possible episode of passing out and "brain fog." You had an MRI of your brain that showed age related changes and chronic microvascular changes. There was no sign of acute stroke or mass like lesion. You were monitored on telemetry w/o evidence of irregular heart rhythm. An echocardiogram was performed and was unremarkable. You received IV Fluids. It is suspected this could all be related to your viral illness and taking OTC Medications muccinex. Your symptoms improved after IV fluids. You had an EEG test done while in hospital and this result is still pending. A neurologist saw you prior to discharge and recommended and outpatient ZIO patch which is a continuous heart monitor. PENDING TEST RESULTS: EEG Pending, please have primary care provider follow up with this result. RECOMMENDATIONS FOR FOLLOW-UP: Please stay well hydrated drinking 8 - 8oz glasses of water or noncaffeinated beverages daily. Please follow up with your Primary Care Provider as scheduled. It is recommended you have an outpatient ZIO patch ( heart monitor) to evaluate for any irregular heart rhythms. Your Primary Care provider can arrange this. Please complete antibiotic in its entirety. I would recommend avoiding over the counter cold medication for now. I highly recommend avoiding "night time" cold remedies. OTHER INSTRUCTIONS: Seek medical attention if you have: * temperature above 101 * chest pain or trouble breathing * abdominal pain, nausea, vomiting * diarrhea, dark stools or bloody stools * any unanswered questions or concerns Call 911 if symptoms are severe. Please take good care of yourself. It has been a pleasure taking care of you. Please take care of yourself. If you have any questions regarding your recent hospitalization please contact [facility] and request oxana Fl[facility] @ [phone]. Total Time Total Time Spent Total Time Spent (In Minutes): 45 minutes Supervising Physician Co-Signing Physician Notes Patient was seen and examined at bedside as a follow-up of fall/?presyncope in the setting of sinusitis/upper respiratory tract illness. Head and neck imaging reviewed, no acute finding. Echo reviewed, EF is WNL. Neurology evaluated, no further recommendation. Orthostatic vitals negative. Patient will benefit from outpatient Zio patch monitoring. Patient will benefit from outpatient neurology follow-up. On examination: Patient on room air, alert and oriented x 3, no BLE edema. Power 5 out of 5 bilateral limbs. Rest of the examination as above. Time spent: 10 minutes I have seen and examined the patient and have discussed the case with the prov ider above. I agree with the assessment and plan as stated.
[2024-07-02 15:11] VITALS: BP 135/71
--- NOTE | 2024-07-03 06:37 | Electroencephalogram ---
EEG Procedure Note Date of Service July 02, 2024 Start / End Times Start Time: 1113 End Time: [address] Fulton History A 74 year old female with syncope. EEG performed for evaluation of epileptiform activity. Home Medication List Medication Instructions Recorded Confirmed Type bimatoprost 0.01 % eye drops 1 drp OPB PM 09/21/21 07/01/24 History (Lumigan) calcium carbonate (Calcium 600) 600 mg PO TID 09/21/21 07/01/24 History alendronate 70 mg tablet 70 mg PO WK 07/01/24 07/01/24 History atorvastatin 10 mg tablet 10 mg PO QAM 07/01/24 07/01/24 History L.acidop,casei,lactis,rham-B.lact,petty 1 cap PO DAILY #7 caps 07/02/24 Rx 625 mg (10 billion cell) capsule (Advanced Probiotic) amoxicillin 875 mg-potassium 1 tab PO BIDM #14 tabs 07/02/24 Rx clavulanate 125 mg tablet Inpatient Medication List Discontinued Medications Amoxicillin/Clavulanate Potassium (Amoxicillin/Clavulanate 875 Mg Tab) 1 tab PO BIDM [facility]; Protocol Stop: 07/11/24 17:14 Last Admin: 07/02/24 07:51 Dose: 1 tab Documented By: Admin: 07/01/24 18:37 Dose: 1 tab Documented By: NIC Cyanocobalamin (Cyanocobalamin (B-12) 500 Mcg Tablet) 500 mcg PO BID [facility] Stop: 08/01/24 12:14 Last Admin: 07/02/24 12:21 Dose: Not Given Documented By: FLORENCE Sodium Chloride (Nss) 1,000 mls @ 75 mls/hr IV .[id number] [facility] Stop: 07/02/24 17:02 Last Admin: 07/02/24 07:51 Dose: 75 mls/hr Documented By: Infusion: 07/02/24 06:59 Dose: Infused Documented By: Admin: 07/01/24 17:39 Dose: 75 mls/hr Documented By: NIC Ioversol (Optiray 320 100ml) 112 ml IV ONCE ONE Stop: 07/01/24 07:33 Last Admin: 07/01/24 07:33 Dose: 112 ml Documented By: ANTONIO Description This is a 21 electrode EEG with a single channel dedicated to limited EKG. The electrodes were placed in accordance with the International 10-20 system. REPORT: At the onset of the EEG, the patient is awake. The background activity consist of 9 Hz, persistent, posteriorly dominant, moderate amplitude, symmetric and rhythmic activity that is reactive to eye opening. Anteriorly, it consist of a mixture of low voltage indeterminate activity and 15-25 Hz, persistent, low amplitude, symmetric and rhythmic activity. Stepwise intermittent photic stimulation (1-21 Hz) and hyperventilation (3 minutes, good effort) do not induce any abnormalities. Drowsiness is characterized by low amplitude mixed frequency activity, roving eye movements, and decreased eye blinking and muscle artifact. Interpretation IMPRESSION: This is a normal awake and drowsy EEG. There is no evidence of focal slowing or epileptiform activity.
[2024-07-03] MEDS ORDERED: ADVANCED PROBIOTIC 625 MG CAPSULE PO SCH (09:00)
== END 2024-07-02 15:52 | disposition home or self-care (01) ==
LOC: ED 06:47 → SUATTDRO 11:38 → 2N 11:38 → INTOOBSV 11:38 → 2N 16:11